=== PATIENT | female | born 1970 | race Caucasian/White ===

== ENCOUNTER → 2016-08-19 | Outpatient (CLI) | payer MEDICAID, OTHER ==
--- NOTE | 2016-08-19 11:48 | MA ---
Screening Digital Mammogram Clinical Indications: Routine screening. Technique: Standard cephalocaudal and mediolateral oblique projections are obtained. This examinati on was processed by the [email or web address] computer aided detection system. Comparison: August 2015 and May 2013 Breast density: C; The breast tissue is heterogeneously dense, which could obscure detection of small masses. Findings: CAD was reviewed. Developing density inner left breast seen only on the CC view. The remain aditi the left and right breast are stable.. Impression: Developing density inner left breast. BI-RADS 0: Needs additional imaging evaluation, inner left breast. Recommendation: Spot compression CC and true-lateral view. If persistent, attempt to localize in the orthagonal plane mammographically, and then proceed to ultrasound, for further characterization and localization purposes, at the discretion of the interpreting radiologist. Please fax a written or electronic order for a left diagnostic mammogram and ultrasound to [phone]. [facility] will send a result letter to the patient. Negative mammography should not preclude additional workup of a clinically suspicious finding. The patient's information is entered into a reminder system with a target due date for her next mammo gram.
== END ==
LOC: BMCIMAGING 08:57
DX: Z12.31 Encounter for screening mammogram for malignant neoplasm of breast (principal)
CPT/HCPCS: G0202

== ENCOUNTER → 2016-08-30 | Outpatient (CLI) | payer MEDICAID ==
--- NOTE | 2016-08-30 14:00 | MA ---
Diagnostic Digital Left Mammogram History: Asymmetry inner left breast. Comparison: Screening mammogram August 19, 2016. Technique: A true lateral view and 2 spot views over the inner left breast. Breast Density: C Findings: The prominent asymmetrical density no longer persists however in its exact position is a fa int 7.7 mm ovoid nodular density. This nodular density is not obviously present in August 2015 or Oc tober 2012. Impression: We will proceed to ultrasound for further evaluation.. I will also perform a physical exa mination of the inner left breast. BI-RADS: Category 0 .
== END ==
LOC: BMCIMAGING 12:46
PROVIDERS: ATTEND Internal Medicine
DX: N63 Unspecified lump in breast (principal)
CPT/HCPCS: G0206

== ENCOUNTER → 2017-04-03 | Outpatient (CLI) | payer MEDICAID | LOC: BMCIMAGING 12:11 | PROVIDERS: ATTEND Internal Medicine | DX: S49.91XA Unspecified injury of right shoulder and upper arm, initial encounter (principal) ==

== ENCOUNTER → 2017-06-21 | Outpatient (CLI) | payer MEDICAID | LOC: BMCIMAGING 15:04 | PROVIDERS: ATTEND Podiatrist Foot & Ankle Surgery | DX: M79.671 Pain in right foot (principal) ==

== ENCOUNTER → 2017-07-10 | Outpatient (CLI) | payer MEDICAID | LOC: FIMAGING 08:04 | PROVIDERS: ATTEND Podiatrist Foot & Ankle Surgery | DX: M72.2 Plantar fascial fibromatosis (principal); S96.891A Other specified injury of other specified muscles and tendons at ankle and foot level, right foot, initial encounter; M65.271 Calcific tendinitis, right ankle and foot ==

== ENCOUNTER → 2017-07-21 | Outpatient (CLI) | payer MEDICAID | LOC: FIMAGING 08:41 | PROVIDERS: ATTEND Orthopaedic Surgery | DX: M75.111 Incomplete rotator cuff tear or rupture of right shoulder, not specified as traumatic (principal); M75.51 Bursitis of right shoulder; M25.511 Pain in right shoulder ==

== ENCOUNTER → 2017-08-21 | Outpatient (CLI) | payer MEDICAID | LOC: BMCIMAGING 12:24 | PROVIDERS: ATTEND Internal Medicine | DX: Z12.31 Encounter for screening mammogram for malignant neoplasm of breast (principal) ==

== ENCOUNTER → 2018-08-27 | Outpatient (CLI) | payer OTHER | LOC: BMCIMAGING 12:32 | PROVIDERS: ATTEND Internal Medicine | DX: Z12.31 Encounter for screening mammogram for malignant neoplasm of breast (principal) ==

== ENCOUNTER → 2018-09-05 | Outpatient (CLI) | payer OTHER | LOC: BMCIMAGING 10:37 | PROVIDERS: ATTEND Internal Medicine | DX: N60.11 Diffuse cystic mastopathy of right breast (principal) ==